=== PATIENT | female | born 1965 | race Caucasian/White ===

== ENCOUNTER → 2016-11-08 | Day surgery (SDC) | payer MEDICAID, OTHER, SELFPAY ==
[~2016-11-08] MED LIST: Glucagon,Human Recombinant 1 MG Vial IV ONE; Midazolam 1 MG/ML 2 ML SDV ONE; Propofol 200 MG/20 ML SDV ONE; Sodium Chloride 0.9% 10 ML Syringe FLUSH PRN; fentaNYL 100 MCG/2 ML SDV ONE
--- NOTE | 2016-11-08 00:41 | EDM.PDOC ---
ED HPI GENERAL MEDICAL PROBLEM - General Chief Complaint: ENT Problem Stated Complaint: FOOD STUCK IN THROAT Time Seen by Provider: 11/08/16 00:35 Source of Information: Reports: Patient, RN Notes Reviewed History Limitations: Reports: No Limitations - History of Present Illness INITIAL COMMENTS - FREE TEXT/NARRATIVE: 51-year-old female presents emergency department today with complaint of difficulty swallowing she has had this problem before she was eating steak earlier tonight feels it has gotten stuck in the lower part of her esophagus she cannot get it swallowed is having difficulty swallowing her own saliva, has had EGD done prior Upper Chest Pain Score (Numeric/FACES): 7 - Related Data Allergies Allergy/AdvReac Type Severity Reaction Status Date / Time Sulfa (Sulfonamide Allergy Itching Verified 11/08/16 00:23 Antibiotics) Past Medical History HEENT History: Reports: Impaired Vision Other OB/BYN History: HYSTERECTOMY - Past Surgical History Other GI Surgeries/Procedures: EPIGASTRIC STRICTURE X 2 WITH SCOPE Social & Family History - Tobacco Use Smoking Status *Q: Unknown Ever Smoked ED ROS GENERAL - Review of Systems Review Of Systems: See Below Constitutional: Reports: No Symptoms HEENT: Reports: Other (Difficulty swallowing) Respiratory: Reports: No Symptoms Cardiovascular: Reports: No Symptoms GI/Abdominal: Reports: No Symptoms ED EXAM, GI/ABD - Physical Exam Exam: See Below Exam Limited By: No Limitations General Appearance: Alert, Mild Distress Respiratory/Chest: No Respiratory Distress, Lungs Clear Cardiovascular: Regular Rate, Rhythm, No Murmur GI/Abdominal Exam: Soft, Non-Tender Course - Vital Signs Last Recorded V/S: Last Vital Signs Temp 97.8 F 11/08/16 00:21 Pulse 73 11/08/16 00:21 Resp 15 11/08/16 00:53 BP 154/103 H 11/08/16 00:53 Pulse Ox 96 11/08/16 00:53 - Orders/Labs/Meds Orders: Active Orders 24 hr Category Date Time Status Peripheral IV Care [RC] . DIRECTED Care 11/08/16 00:38 Active Sodium Chloride 0.9% [Saline Flush] Med 11/08/16 00:37 Active 10 ml FLUSH ASDIRECTED PRN Peripheral IV Insertion Adult [OM.PC] Urgent Oth 11/08/16 00:37 Ordered Medication Orders Sodium Chloride (Saline Flush) 10 ml FLUSH ASDIRECTED PRN PRN Reason: Keep Vein Open Last Admin: 11/08/16 00:51 Dose: 10 ml Meds: Medications Generic Name Dose Route Start Last Admin Trade Name Freq PRN Reason Stop Dose Admin Sodium Chloride 10 ml 11/08/16 00:37 11/08/16 00:51 Saline Flush FLUSH 10 ml ASDIRECTED PRN Administration Keep Vein Open Discontinued Medications Generic Name Dose Route Start Last Admin Trade Name Daija PRN Reason Stop Dose Admin Glucagon 1 mg 11/08/16 00:36 11/08/16 00:51 Glucagen IV 11/08/16 00:37 1 mg ONETIME ONE Administration Departure - Departure Time of Disposition: 01:45 Disposition: Admitted As Inpatient 64 Condition: Good Clinical Impression: Dysphagia Qualifiers: Dysphagia type: esophageal phase Qualified Code(s): R13.14 - Dysphagia, pharyngoesophageal phase - Discharge Information - My Orders Last 24 Hours: My Active Orders 11/08/16 00:37 Sodium Chloride 0.9% [Saline Flush] 10 ml FLUSH ASDIRECTED PRN Peripheral IV Insertion Adult [OM.PC] Urgent 11/08/16 00:38 Peripheral IV Care [RC] . DIRECTED - Assessment/Plan Last 24 Hours: My Active Orders 11/08/16 00:37 Sodium Chloride 0.9% [Saline Flush] 10 ml FLUSH ASDIRECTED PRN Peripheral IV Insertion Adult [OM.PC] Urgent 11/08/16 00:38 Peripheral IV Care [RC] . DIRECTED Plan: Assessment Acuity = acute Site and laterality = dysphagia Etiology = secondary to food bolus Manifestations = none Location of injury = Home Lab values = none Plan Did combination glucagon and [employer] without any success discuss case with Dr. Iglesias surgeon construction craft laborer he agreed to come and evaluate the patient emergency department Patient was in agreement with the plan all questions were answered, they were instructed to return to the emergency department or call for worsening symptoms. This note was dictated using [employer] voice recognition software please call with any questions.
[2016-11-08 03:02] VITALS: BP 126/72
--- NOTE | 2016-11-10 10:23 | OR ---
DATE OF PROCEDURE: 11/08/2016 PREOPERATIVE DIAGNOSIS: Obstructing esophageal foreign body (steak). POSTOPERATIVE DIAGNOSIS: Obstructing esophageal foreign body (steak) plus gastroesophageal reflux disease. PROCEDURE: Esophagogastroduodenoscopy with removal of esophageal foreign body and biopsy of GE junction. ANESTHESIA: IV anesthesia with monitored anesthesia care. INDICATION: This is a 51-year-old white female, who was eating steak this evening, when it became stuck in her esophagus. She is unable to handle her secretions. She presented to the emergency room. She says this happened to her 10 years ago and was treated in [place], [place] with endoscopy. I counseled her for upper endoscopy with removal of the foreign body and possible biopsy including risks and alternatives, and she gave her informed consent to proceed. DESCRIPTION OF PROCEDURE: The patient was placed in left lateral decubitus position. IV anesthesia was administered by the Anesthesia Service. Time-out was held. The flexible video Olympus upper endoscope was passed through her mouth, down her esophagus, and into the GE junction where we encountered a bolus of food. A basket was placed around some of it and the basket was removed with scope, this material was discarded. The scope was then reintroduced back down to the GE junction where we were able to reduce the rest of the food bolus into the stomach. The scope was then passed down through the pylorus into the duodenum, reaching its third portion. The scope was slowly withdrawn, examining the mucosa throughout. The duodenal mucosa appeared unremarkable. The gastric mucosa appeared unremarkable. The scope was brought up to the GE junction. There was evidence of inflammation at the GE junction, possibly this is from the retained obstructing foreign body. At any rate, we did obtain biopsies of the gastroesophageal junction. The scope was then brought proximally up through remainder of esophagus, which otherwise appeared unremarkable and it was removed. She tolerated the procedure well. Silver Iglesias MD /[id number] KARLI
== END | disposition home or self-care (01) ==
LOC: JP.ED 00:10 → MERGE 01:41 → JP.SDS 01:41
PROVIDERS: ATTEND Surgery
DX: T18.128A Food in esophagus causing other injury, initial encounter (principal); K29.50 Unspecified chronic gastritis without bleeding; K20.9 Esophagitis, unspecified; Z88.2 Allergy status to sulfonamides; Z79.899 Other long term (current) drug therapy; Z90.710 Acquired absence of both cervix and uterus; Z98.890 Other specified postprocedural states
CPT/HCPCS: 43239; 43247; 96374; 99284; J1610; J2250; J2704; J3010; J7050; 88305

== ENCOUNTER 2020-12-14 14:01 | Emergency (ER) | payer OTHER ==
[2020-12-14] MEDS ORDERED: Ondansetron 4 MG/2 ML SDV IVPUSH ONE (14:36)
[2020-12-14] MEDS ORDERED: Sodium Chloride 0.9% 1,000 ML IV ONE (14:36)
[2020-12-14] MEDS ORDERED: Metoclopramide 10 MG/2 ML SDV IVPUSH ONE (15:39)
--- NOTE | 2020-12-14 15:42 | EDM.PDOC ---
ED HPI GENERAL MEDICAL PROBLEM - General Chief Complaint: Gastrointestinal Problem Stated Complaint: CAN'T KEEP ANYTHING DOWN (FOOD OR WATER) Time Seen by Provider: 12/14/20 14:35 Source of Information: Reports: Patient History Limitations: Reports: No Limitations - History of Present Illness INITIAL COMMENTS - FREE TEXT/NARRATIVE: 55-year-old female who is "under a lot of stress" presents with nausea and vomiting for the past 12 hours. No diarrhea, no fevers or chills. Every time she tries to eat or drink anything she gets nauseous and throws up. She is very uncomfortable and developing abdominal and chest pain due to the vomiting. She is also extremely anxious. Onset: Sudden (Symptoms started fairly suddenly about 12 hours ago) Duration: Hour(s): (12 hours) Associated Symptoms: Reports: Loss of Appetite, Malaise, Nausea/Vomiting, Other (No diarrhea, no dysuria). Denies: Confusion, Chest Pain, Fever/Chills, Shortness of Breath Abdomen Pain Score (Numeric/FACES): 10 - Related Data Allergies Allergy/AdvReac Type Severity Reaction Status Date / Time Sulfa (Sulfonamide Allergy Itching Verified 12/14/20 14:15 Antibiotics) Home Meds: Home Meds Aspirin [Anson Aspirin EC] 81 mg PO DAILY 12/14/20 [History] Cetirizine [ZyrTEC] 10 mg PO DAILY 12/14/20 [History] Clopidogrel [Plavix] 75 mg PO DAILY 12/14/20 [History] Gabapentin [Neurontin] 600 mg PO TID 12/14/20 [History] Metoprolol Tartrate 25 mg PO DAILY 12/14/20 [History] Omeprazole 40 mg PO ACBREAKFAST 12/14/20 [History] Venlafaxine HCl [Venlafaxine ER] 37.5 mg PO DAILY 12/14/20 [History] amLODIPine [Norvasc] 5 mg PO DAILY 12/14/20 [History] busPIRone [Buspar] 10 mg PO BEDTIME 12/14/20 [History] dimenhyDRINATE [Dimenhydrinate] 50 mg PO BEDTIME PRN 12/14/20 [History] Past Medical History HEENT History: Reports: Impaired Vision Cardiovascular History: Reports: Hypertension, Stents Other FOLDING MACHINE OPERATOR History: HYSTERECTOMY Musculoskeletal History: Reports: Arthritis Psychiatric History: Reports: Anxiety, PTSD - Past Surgical History Cardiovascular Surgical History: Reports: Coronary Artery Stent GI Surgical History: Reports: EGD Other GI Surgeries/Procedures: EPIGASTRIC STRICTURE X 2 WITH SCOPE Female Surgical History: Reports: Hysterectomy Musculoskeletal Surgical History: Reports: Other (See Below) Other Musculoskeletal Surgeries/Procedures:: hand surgery Social & Family History - Tobacco Use Tobacco Use Status *Q: Never Tobacco User - Caffeine Use Caffeine Use: Reports: None - Recreational Drug Use Recreational Drug Use: No ED ROS GENERAL - Review of Systems Review Of Systems: See Below Constitutional: Reports: Malaise, Decreased Appetite. Denies: Fever, Chills HEENT: Denies: Throat Pain Respiratory: Denies: Shortness of Breath Cardiovascular: Denies: Chest Pain GI/Abdominal: Reports: Abdominal Pain (Epigastric pain especially with vomiting), Nausea, Vomiting. Denies: Diarrhea Skin: Reports: No Symptoms Neurological: Reports: No Symptoms Psychiatric: Reports: Anxiety ED EXAM, GI/ABD - Physical Exam Exam: See Below Exam Limited By: No Limitations General Appearance: Alert, No Apparent Distress (Looks anxious but not distressed) Eyes: Bilateral: Normal Appearance (Good hydration, no jaundice) Throat/Mouth: Normal Inspection Head: Atraumatic Respiratory/Chest: No Respiratory Distress, Lungs Clear Cardiovascular: Regular Rate, Rhythm. No: Tachycardia GI/Abdominal Exam: Normal Bowel Sounds, Soft, Tender (Reacts with some tenderness to palpation across the upper abdomen but no focal guarding or rebound) Extremities: Normal Inspection Neurological: Alert, Oriented Psychiatric: Anxious Course - Vital Signs Last Recorded V/S: Last Vital Signs Temp 96.3 F L 12/14/20 14:26 Pulse 82 12/14/20 15:51 Resp 18 12/14/20 14:26 BP 164/89 H 12/14/20 15:51 Pulse Ox 96 12/14/20 15:51 - Orders/Labs/Meds Labs: Laboratory Tests 12/14/20 12/14/20 Range/Units 14:50 14:50 WBC 7.6 (4.5-11.0) K/uL RBC 4.57 (3.30-5.50) M/uL Hgb 15.9 H (12.0-15.0) g/dL Hct 44.7 (36.0-48.0) % MCV 98 (80-98) fL MCH 35 H (27-31) pg MCHC 36 (32-36) % Plt Count 254 (150-400) K/uL Neut % (Auto) 77.4 H (36-66) % Lymph % (Auto) 13.5 L (24-44) % Carson % (Auto) 8.3 H (2-6) % Eos % (Auto) 0.1 L (2-4) % Baso % (Auto) 0.7 (0-1) % Sodium 140 (140-148) mmol/L Potassium 4.6 (3.6-5.2) mmol/L Chloride 99 L (100-108) mmol/L Carbon Dioxide 26 (21-32) mmol/L Anion Gap 19.6 H (5.0-14.0) mmol/L BUN 14 (7-18) mg/dL Creatinine 1.0 (0.6-1.0) mg/dL Est Cr Clr Drug Dosing 46.84 mL/min Estimated GFR (MDRD) 57 L (>60) Glucose 171 H (74-106) mg/dL Calcium 9.7 (8.5-10.1) mg/dL Lipase 91 (73-393) U/L Meds: Medications Discontinued Medications Generic Name Dose Route Start Last Admin Trade Name Freq PRN Reason Stop Dose Admin Sodium Chloride 1,000 mls @ 999 mls/hr 12/14/20 14:36 12/14/20 14:53 Normal Saline IV 12/14/20 15:36 999 mls/hr ONETIME ONE Administration Metoclopramide HCl 5 mg 12/14/20 15:39 12/14/20 15:45 Metoclopramide 10 Mg/2 Ml Sdv IVPUSH 12/14/20 15:40 5 mg ONETIME ONE Administration Ondansetron HCl 4 mg 12/14/20 14:36 12/14/20 14:56 Ondansetron 4 Mg/2 Ml Sdv IVPUSH 12/14/20 14:37 4 mg ONETIME ONE Administration - Re-Assessments/Exams Free Text/Narrative Re-Assessment/Exam: 12/14/20 15:42 An IV was started, she was hydrated with 1 L of normal saline and given 4 mg of IV Zofran. She had no emesis while being treated but still was complaining of significant nausea. She was then given 5 mg of IV Reglan. CBC and BMP were obtained which were all reassuring. 12/14/20 15:43 Glucose at 171 was the only lab that was significantly abnormal. 12/14/20 16:05 After the Reglan and IV fluids, patient was able to drink water and take her gabapentin without difficulty. She was discharged with 5 additional doses of Zofran and can return in the next 24 to 48 hours if not improving. Departure - Departure Time of Disposition: 16:31 Disposition: Home, Self-Care 01 Clinical Impression: Nausea and vomiting Qualifiers: Vomiting type: unspecified Vomiting Intractability: non-intractable Qualified Code(s): R11.2 - Nausea with vomiting, unspecified - Discharge Information Instructions: Nausea and Vomiting, Adult, [id number] Referrals: PCP,Unknown [Primary Care Provider] - Forms: ED Department Discharge Care Plan Goals: Advance diet slowly concentrating on fluids for the next 12 to 24 hours. Use Zofran under your tongue as needed as prescribed for persistent nausea. Return if worsening despite treatment. Sepsis Event Note (ED) - Evaluation Sepsis Screening Result: No Definite Risk - Focused Exam Vital Signs: Vital Signs Temp Pulse Resp BP Pulse Ox 12/14/20 15:51 82 164/89 H 96 12/14/20 14:26 96.3 F L 79 18 169/87 H 99
[2020-12-14 15:51] VITALS: BP 164/89; PULSE 82
== END 2020-12-14 16:32 | disposition home or self-care (01) ==
LOC: JP.ED 14:01
DX: R11.2 Nausea with vomiting, unspecified (principal); I10 Essential (primary) hypertension; M19.90 Unspecified osteoarthritis, unspecified site; Z88.2 Allergy status to sulfonamides; Z79.82 Long term (current) use of aspirin; Z79.02 Long term (current) use of antithrombotics/antiplatelets; Z79.899 Other long term (current) drug therapy
CPT/HCPCS: 36415; 80048; 83690; 85025; 96361; 96374; 96375; 99284; J2405; J2765; J7030